=== PATIENT | female | born 1995 | race Caucasian/White ===

== ENCOUNTER 2021-03-03 13:01 | Emergency (ER) | payer SELFPAY ==
[2021-03-03 14:45] VITALS: BP 108/59; PULSE 75; RESP 18; TEMP 36.7; O2SAT 98; BMI 19.5
[2021-03-03 14:54] LABS: UTC Pregnancy Test, Urine Positive (Negative)
[2021-03-03 15:10] VITALS: BP 108/59; PULSE 75; RESP 18; TEMP 36.7; O2SAT 98
--- NOTE | 2021-03-03 15:11 | HMH.EDUTC ---
[facility] Disposition Clinical Impression: Positive urine test Disposition: Home, Self-Care Condition on Discharge: Good Instructions: Eating for Appropriate Weight Gain During , Medications and , Home and Clinic Tests Additional Instructions: Make sure to call back to the [facility] for the results of your Blood test Follow up with OBGYN for further evaluation and treatment Return if needed Straight to ER if any life threatening symptoms Referrals: Provider,Referral, MD [Primary Care Provider] - As needed Time of Disposition: 15:14 Medical Decision Making - Broderick Inquiry Pt receiving controlled substance: No Broderick was queried for this patient: No Vital Signs: 03/03/21 14:45 03/03/21 15:10 Temperature 98.0 F 98.0 F Temperature Source Oral Pulse Rate 75 Pulse Rate [Right Brachial] 75 Respiratory Rate 18 18 Blood Pressure 108/59 L Blood Pressure [Right Arm] 108/59 L Blood Pressure Mean [Right Arm] 75 Blood Pressure Source [Right Arm] Automatic Cuff Blood Pressure Position [Right Arm] Sitting 02 Sat by Pulse Oximetry 98 Oxygen Delivery Method Room Air - Lab Data Lab results reviewed: Yes: I reviewed the patient's lab results. Lab Results 03/03/21 14:45: [facility] Positive 03/03/21 14:55: Serum HCG, Qual Negative Medical Decision Narrative: Patient states that she will call back to the [facility] for the results doesnt want to wait in room Patient called back and she was informed of beta hcg and recommended to follow up with OBGYN for further testing and evaluation and retesting [facility] HPI - General Stated complaint: test Time Seen by Provider: 03/03/21 15:11 Mode of Arrival: Ambulatory Source of Information: Patient Limitations: No Limitations Description of Symptoms (Recalled from Triage Doc. by RN): PATIENT REQUESTING TEST. REPORTS SHE HAD 3 POSITIVE TESTS AT HOME AND IS WANTING CONFIRMATION. C/O BREAST TENDERNESS AND FATIGUE HEENT Symptoms (Recalled from RN notes): No Resp Symptoms (Recalled from RN notes): No Skin Symptoms (Recalled from RN notes): No MS Symptoms (Recalled from RN notes): No Functional Status (Recalled from RN notes): WNL - History of Present Illness Provider Complaint: Patient state that she took 3 tests this morning and they was all positive State that the line was faint so she came in to get tested here to see if the test here was positive - Related Data Allergies Allergy/AdvReac Type Severity Reaction Status Date / Time No Known Allergies Allergy Verified 03/03/21 15:11 - Worker's Comp Is this a Worker's Comp case?: No [facility] History - Hepatitis A Screen Drug use history?: No High risk sexual behaviors?: No History of sexually transmitted infection?: No Currently employed?: No Childcare worker?: No Do you have indoor plumbing?: Yes Do you have electricity?: Yes Attestation statement:: This patient has been screened for Hepatitis A risk factors. I have reviewed the patient's past medical history: Yes ROS Obtained: Yes All systems reviewed & no additional complaints, Yes Systems reviewed as appropriate & no additional complaints - Constitutional Constitutional: Reports system reviewed and no additional complaints, except as docu, Denies body ache, Denies chills, Denies fever(s) - ENT Ears, Nose, Mouth, and Throat: Reports system reviewed and no additional complaints, except as docu - Cardiovascular Cardiovascular: Reports system reviewed and no additional complaints, except as docu - Respiratory Respiratory: Reports system reviewed and no additional complaints, except as docu - Gastrointestinal Gastrointestingal: Reports: system reviewed and no additional complaints, except as docu. Denies: abdominal pain - Genitourinary Female Genitourinary: Reports system reviewed and no additional complaints, except as docu, Reports other (has been trying to get
[2021-03-03 15:38] LABS: HCG Qualitative, Serum Negative (Negative)
== END 2021-03-03 15:15 | disposition home or self-care (01) ==
PROVIDERS: Emergency Provider Nurse Practitioner
DX: Z32.01 Encounter for pregnancy test, result positive (principal); R53.1 Weakness
CPT/HCPCS: 81025; 84703; 99203; G0463